=== PATIENT | female | born 1970 | race African-American/Black ===

== ENCOUNTER 2016-09-30 07:40 | Emergency (ER) | payer OTHER ==
[~2016-09-30] VITALS: Ht 172.7 cm; Wt 113.0 kg
[~2016-09-30 07:40] MED LIST: CEPH500C3 PO; GLUCTAB PO; HYDR12.56 PO; NORV5TAB PO; SYNT100T PO; VICT18IN SQ
[2016-09-30 07:42] VITALS: BP 208/97; PULSE 62; RESP 20; TEMP 98.1; O2SAT 97
[2016-09-30] MEDS ORDERED: SYNT175T PO (08:00)
[2016-09-30] MEDS ORDERED: METF500T PO (08:00)
--- NOTE | 2016-09-30 08:09 | PD ---
HPI Chief Complaint: Abdominal Pain Time Seen by Provider: 07:56 Travel History International Travel<30 days: No Contact w/Intl Traveler<30days: No Traveled to known affect area: No History of Present Illness HPI This is a 46-year-old female with a history of hypertension, thyroid disease, type 2 diabetes, presents today with complaints of 1 week of right lower abdominal pain with radiation to her right back. Patient reports the pain is severe and worsening. She reports that at times she has pain when she walks that is severe according to her. She denies any fevers, chills. She denies any vaginal discharge. She has had a hysterectomy and denies possibility of being . Patient denies any urinary symptoms. She denies any change in her bowel movements. The patient has no previous history of pain like this. PFSH Past Medical History Heart Rhythm Problems: No Cancer: No Cardiovascular Problems: Yes High Cholesterol: No Chest Pain: No Congestive Heart Failure: No Diabetes: Yes Patient Takes Glucophage: No Endocrine: Yes Genitourinary: No Hypertension: Yes Musculoskeletal: No Neurologic: No Psychiatric: No Reproductive: Yes (huge fibrioids) Respiratory: No Thyroid Disease: Yes Tetanus Vaccination: < 5 Years ?: Not Menopausal: Yes Past Surgical History Abdominal Surgery: Yes Cardiac Surgery: No Ear Surgery: No Endocrine Surgery: No Eye Surgery: No Genitourinary Surgery: No Gynecologic Surgery: Yes (open hysterectomy) Hysterectomy: Yes (PARTIAL) Oral Surgery: No Pacemaker: No Thoracic Surgery: No Other Surgery: Yes Social History Alcohol Use: No Tobacco Use: No Substance Use: No Allergies-Medications (Allergen,Severity, Reaction): Coded Allergies: Brethine (Verified Allergy, Severe, 09/30/16) Reported Meds & Prescriptions Reported Meds & Active Scripts Active Flexeril (Cyclobenzaprine HCl) 5 Mg Tab 5 Mg PO TID Lortab (Hydrocodone-Acetaminophen) 5-325 Mg Tab 1 Tab PO Q6H PRN Reported Tribenzor (Xctdcxgsyd-Kgygbxhxqw-Djuexylvzylxriyfjwr) 40-10-25 mg Tab 1 Tab PO DAILY Metformin (Metformin HCl) 500 Mg Tab 500 Mg PO BIDPC With meals Synthroid (Levothyroxine Sodium) 175 Mcg Tab 175 Mcg PO DAILY Review of Systems Except as stated in HPI: all other systems reviewed are Neg General / Constitutional: No: Fever, Chills HENT: No: Headaches, Neck Pain Cardiovascular: No: Chest Pain or Discomfort, Palpitations Respiratory: No: Cough, Shortness of Breath Gastrointestinal: Positive: Abdominal Pain (right lower quadrant), No: Nausea , Vomiting, Diarrhea Genitourinary: No: Urgency, Frequency, Dysuria, Pelvic Pain, Discharge, Vaginal Bleeding Musculoskeletal: No: Weakness, Pain (pain from right lower quadrant rate into the back.) Neurologic: No: Weakness, Headache Physical Exam Narrative GENERAL: Well-nourished, well-developed patient, in no acute distress. SKIN: Focused skin assessment warm/dry. HEAD: Normocephalic/atraumatic. EYES: No scleral icterus. No injection or drainage. NECK: Supple, trachea midline. CARDIOVASCULAR: Regular rate and rhythm without murmurs, gallops, or rubs. RESPIRATORY: Breath sounds equal bilaterally. No accessory muscle use. GASTROINTESTINAL: Abdomen soft, nondistended. The patient has subjective right lower quadrant tenderness. There is no rebound or guarding. MUSCULOSKELETAL: No cyanosis, or edema. BACK: No CVA tenderness. No musculoskeletal pain. NEUROLOGICAL: Awake and alert. Cranial nerves II through XII intact. Motor grossly within normal limits. Five out of 5 muscle strength in all muscle groups. Normal speech. Data Data Last Documented VS Vital Signs Date Time Temp Pulse Resp B/P Pulse Ox O2 Delivery O2 Flow Rate FiO2 09/30/16 09:25 16 97 Room Air 09/30/16 09:20 67 156/94 09/30/16 07:42 98.1 Orders Complete Blood Count With Diff (09/30/16 08:09) Comprehensive Metabolic Panel (09/30/16 08:09) Urinalysis - C+S If Indicated (09/30/16 08:09) Iv Access Insert/Monitor (09/30/16 08:09) Ecg Monitoring (09/30/16 08:09) Oximetry (09/30/16 08:09) Sodium Chloride 0.9% Flush (Ns Flush) (09/30/16 08:15) Ketorolac Inj (Toradol Inj) (09/30/16 08:15) Ct Abd/Pel W Iv Contrast(Rout) (09/30/16 09:29) Iohexol 350 Inj (Omnipaque 350 Inj) (09/30/16 10:21) Labs Laboratory Tests Test 09/30/16 08:15 White Blood Count 5.9 TH/MM3 Red Blood Count 5.34 MIL/MM3 Hemoglobin 13.8 GM/DL Hematocrit 41.7 % Mean Corpuscular Volume 78.1 FL Mean Corpuscular Hemoglobin 25.9 PG Mean Corpuscular Hemoglobin 33.2 % Concent Red Cell Distribution Width 14.2 % Platelet Count 221 TH/MM3 Mean Platelet Volume 10.1 FL Neutrophils (%) (Auto) 45.9 % Lymphocytes (%) (Auto) 41.7 % Monocytes (%) (Auto) 7.1 % Eosinophils (%) (Auto) 4.3 % Basophils (%) (Auto) 1.0 % Neutrophils # (Auto) 2.7 TH/MM3 Lymphocytes # (Auto) 2.4 TH/MM3 Monocytes # (Auto) 0.4 TH/MM3 Eosinophils # (Auto) 0.3 TH/MM3 Basophils # (Auto) 0.1 TH/MM3 CBC Comment DIFF FINAL Differential Comment Urine Color YELLOW Urine Turbidity CLEAR Urine pH 6.0 Urine Specific [place] 1.019 Urine Protein NEG mg/dL Urine Glucose (UA) NEG mg/dL Urine Ketones NEG mg/dL Urine Occult Blood NEG Urine Nitrite NEG Urine Bilirubin NEG Urine Urobilinogen LESS THAN 2.0 MG/DL Urine Leukocyte Esterase NEG Urine RBC 1 /hpf Urine WBC LESS THAN 1 /hpf Urine Squamous Epithelial 1 /hpf Cells Urine Mucus FEW /lpf Microscopic Urinalysis Comment CULT NOT INDICATED Sodium Level 139 MEQ/L Potassium Level 4.0 MEQ/L Chloride Level 106 MEQ/L Carbon Dioxide Level 25.5 MEQ/L Anion Gap 8 MEQ/L Blood Urea Nitrogen 15 MG/DL Creatinine 0.99 MG/DL Estimat Glomerular Filtration 73 ML/MIN Rate Random Glucose 118 MG/DL Calcium Level 9.1 MG/DL Total Bilirubin 0.3 MG/DL Aspartate Amino Transf 23 U/L (AST/SGOT) Alanine Aminotransferase 28 U/L (ALT/SGPT) Alkaline Phosphatase 102 U/L Total Protein 8.3 GM/DL Albumin 3.9 GM/DL [facility] Medical Decision Making Medical Screen Exam Complete: Yes Emergency Medical Condition: Yes Differential Diagnosis Appendicitis versus kidney stone versus ovarian cyst Narrative Course 46-year-old female presents with right lower quadrant pain radiating to her back. The patient's white blood cell count and urinalysis were within normal limits. Given the history of the pain for 1 week and her stating that severe, I ordered a CT scan to rule out occult pathology. The CT scan shows no evidence of acute pathology to explain her pain. She is status post hysterectomy. I did explain that there could be musculoskeletal in etiology. It could also be ovarian however she did not have tenderness elicited on exam. She had subjective tenderness in her right lower quadrant. She'll be discharged with a prescription for Lortab. She'll also be given a prescription for Flexeril. She's been instructed to follow up with her primary care physician Dr. Watson, if the pain persists. She is also instructed to return here if she lost any worsening pain, fevers chills, or any other reason that concerns her. Diagnosis Primary Impression: Abdominal pain Additional Impression: Right low back pain Scripts Cyclobenzaprine (Flexeril)5 Mg Tab5 Mg PO TID #12 TAB Ref 0 Prov:Gerry Kerr MD 09/30/16 Hydrocodone-Acetaminophen (Lortab)5-325 Mg Tab1 Tab PO Q6H PRN (PAIN) #12 TAB Ref 0 Prov:Gerry Kerr MD 09/30/16 Gerry Kerr MD Sep 30, 2016 08:09
[2016-09-30] MEDS ORDERED: KETOROLAC TROMETHAMINE 30 MG/ML (IVP) VIAL IVP ONE (08:15)
[2016-09-30] MEDS ORDERED: SODIUM CHLORIDE 0.9% FLUSH 10 ML FLUSH IV FLUSH PRN (08:15)
[2016-09-30 08:29] LABS: AUTOMATED NEUTROPHIL # 2.7 TH/MM3 (1.8-7.7); BASOPHIL # 0.1 TH/MM3 (0-0.2); EOSINOPHIL # 0.3 TH/MM3 (0-0.4); EOSINOPHIL % 4.3 % (0.0-4.0); HEMATOCRIT 41.7 % (35.0-46.0); HEMO FLAGS DIFF FINAL; LYMPH % 41.7 % (9.0-44.0); LYMPHOCYTE # 2.4 TH/MM3 (1.0-4.8); MEAN CELL VOLUME 78.1 FL (80.0-100.0); MEAN CORPUSCULAR HEMOGLOBIN 25.9 PG (27.0-34.0); MEAN CORPUSCULAR HGB CONC 33.2 % (32.0-36.0); MONO % 7.1 % (0.0-8.0); NEUT % 45.9 % (16.0-70.0); PLATELET COUNT 221 TH/MM3 (150-450); RED BLOOD COUNT 5.34 MIL/MM3 (4.00-5.30); RED CELL DISTRIBUTION WIDTH 14.2 % (11.6-17.2); WHITE BLOOD COUNT 5.9 TH/MM3 (4.0-11.0)
[2016-09-30 08:51] VITALS: O2SAT 97
[2016-09-30 08:58] LABS: BLOOD, URINE NEG (NEG); GLUCOSE,URINE NEG (NEG); KETONE, URINE NEG (NEG); MUCUS URINE FEW /lpf (OCC); NITRITE,URINE NEG (NEG); SQUAMOUS EPITHELIAL CELL URINE 1 /hpf (0-5); URINE COLOR YELLOW (YELLW/STRAW)
[2016-09-30 09:01] LABS: ALKALINE PHOSPHATASE 102 U/L (45-117); ALT (GPT) 28 U/L (10-53); ANION GAP 8 MEQ/L (5-15); AST (GOT) 23 U/L (15-37); BICARBONATE 25.5 MEQ/L (21.0-32.0); BLOOD UREA NITROGEN 15 MG/DL (7-18); CHLORIDE 106 MEQ/L (98-107); GLOMERULAR FILTRATION RATE 73 ML/MIN (>89); SODIUM (NA) 139 MEQ/L (136-145); TOTAL BILIRUBIN ADULT 0.3 MG/DL (0.2-1.0)
[2016-09-30 09:02] LABS: COMMENT (UR) CULT NOT INDICATED; CULTURE IF INDICATED CULT NOT INDICATED
[2016-09-30 09:20] VITALS: BP 156/94; PULSE 67; RESP 16; O2SAT 97
[2016-09-30 09:25] VITALS: RESP 16; O2SAT 97
[2016-09-30] MEDS ORDERED: IOHEXOL 350 MG/ML 10 ML VIAL (for RAD DIAG) IV ONE (10:21)
[2016-09-30] MEDS ORDERED: TRIBTAB9 PO (10:34)
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
[2016-09-30] MEDS ORDERED: HYDR-3533 PO (11:16)
[2016-09-30] MEDS ORDERED: CYCL5TAB PO (11:16)
== END 2016-09-30 11:57 | disposition home or self-care (01) ==
LOC: NEPE 07:40
DX: R10.31 Right lower quadrant pain (principal); M54.5 Low back pain; I10 Essential (primary) hypertension; E11.9 Type 2 diabetes mellitus without complications; E07.9 Disorder of thyroid, unspecified; Z79.84 Long term (current) use of oral hypoglycemic drugs; Z90.710 Acquired absence of both cervix and uterus
CPT/HCPCS: 74177; 80053; 81001; 85025; 96374; 99284; J1885; Q9967

== ENCOUNTER 2017-06-16 17:03 | Emergency (ER) | payer OTHER ==
[~2017-06-16] VITALS: Ht 172.7 cm; Wt 110.0 kg
[~2017-06-16 17:03] MED LIST changes: -CEPH500C3 PO; +CYCL5TAB PO; -GLUCTAB PO; +HYDR-3533 PO; -HYDR12.56 PO; +METF500T PO; -NORV5TAB PO; -SYNT100T PO; +SYNT175T PO; +TRIBTAB9 PO; -VICT18IN SQ
[2017-06-16 17:12] VITALS: BP 139/75; PULSE 95; RESP 16; TEMP 97.9; O2SAT 97
[2017-06-16] MEDS ORDERED: IBUPROFEN 800 MG TAB PO ONE (18:00)
[2017-06-16] MEDS ORDERED: METHOCARBAMOL 500 MG TAB PO ONE (18:00)
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
[2017-06-16] MEDS ORDERED: ROBA500T PO (18:47)
[2017-06-16] MEDS ORDERED: IBUP1TAB7 PO (18:47)
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
== END 2017-06-16 19:08 | disposition home or self-care (01) ==
LOC: PHEFT 17:03
DX: S39.012A Strain of muscle, fascia and tendon of lower back, initial encounter (principal); S20.219A Contusion of unspecified front wall of thorax, initial encounter; I10 Essential (primary) hypertension; E11.8 Type 2 diabetes mellitus with unspecified complications; Z79.84 Long term (current) use of oral hypoglycemic drugs; V49.49XA Driver injured in collision with other motor vehicles in traffic accident, initial encounter
CPT/HCPCS: 71010; 72100; 99284